=== PATIENT | male | born 1955 | race Caucasian/White ===

== ENCOUNTER 2020-12-02 13:55 | Outpatient (CLI) | payer OTHER ==
[2020-12-03 01:35] LABS: SARS-CoV-2 PCR by NAA Not Detected (NotDetected)
== END 2020-12-02 13:56 | disposition home or self-care (01) ==
LOC: CSHLAB 13:55
PROVIDERS: ATTEND Orthopaedic Surgery
DX: Z20.822 Contact with and (suspected) exposure to COVID-19 (principal); D86.0 Sarcoidosis of lung
CPT/HCPCS: 87635; U0003; U0005